=== PATIENT | female | born 1985 | race African-American/Black ===

== ENCOUNTER 2018-11-20 03:28 | Inpatient (IN) | payer MEDICAID ==
[~2018-11-20] VITALS: Ht 175.3 cm; Wt 114.9 kg
[2018-11-20 03:50] LABS: GLUCOSE,POINT OF CARE 74 MG/DL (70-110)
[2018-11-20] MEDS ORDERED: IOVERSOL 350 MG/ML 150 ML VIAL ONE (04:25)
[2018-11-20] MEDS ORDERED: SODIUM CHLORIDE 0.9% 100 ML ONE (04:25)
[2018-11-20] MEDS ORDERED: METOCLOPRAMIDE HCL 5 MG/ML 2 ML VIAL IVP ONE (05:30)
[2018-11-20] MEDS ORDERED: MORPHINE SULFATE 4 MG/ML SYRINGE IVP ONE (05:30)
[2018-11-20] MEDS ORDERED: ASPIRIN 325 MG TABLET PO ONE (07:00)
[2018-11-20] MEDS ORDERED: ONDANSETRON HCL 4 MG/2 ML VIAL IVP PRN (07:00)
[2018-11-20] MEDS ORDERED: 0.9% SODIUM CHLORIDE 10 ML SYRINGE IVP PRN (07:00)
[2018-11-20] MEDS ORDERED: ACETAMINOPHEN 325 MG TABLET PO PRN (07:00)
[2018-11-20] MEDS ORDERED: ONDANSETRON HCL 4 MG/2 ML VIAL IVP ONE (07:15)
[2018-11-20] MEDS ORDERED: KETOROLAC TROMETHAMINE 30 MG/ML VIAL IVP ONE (07:15)
[2018-11-20 07:24] LABS: GLUCOSE,POINT OF CARE 85 MG/DL (70-110)
[2018-11-20] MEDS ORDERED: LORazepam 2 MG/ML VIAL IVP PRN (08:15)
[2018-11-20] MEDS ORDERED: MAGNESIUM HYDROXIDE SUSPENSION 30 ML UDCUP PO PRN (08:15)
[2018-11-20] MEDS ORDERED: TraMADol HCL 50 MG TABLET PO PRN (09:30)
[2018-11-20 09:40] VITALS: BP 119/74
[2018-11-20] MEDS ORDERED: GADOBUTROL 1 MMOL/ML 10 ML VIAL IVP ONE (10:28)
[2018-11-20] MEDS: FAMOTIDINE 20 MG TABLET PO SCH (11:32)
[2018-11-20] MEDS: DOCUSATE SODIUM 100 MG CAPSULE PO SCH ×2 (11:32→22:35)
[2018-11-20 12:39] LABS: GLUCOMETER DEV NAME(LOC) 5S.1; GLUCOSE,POINT OF CARE 127 MG/DL (70-110)
[2018-11-20] MEDS: ACETAMINOPHEN 325 MG TABLET PO PRN (15:32)
[2018-11-20 15:48] VITALS: BP 121/71
[2018-11-20 17:10] LABS: GLUCOMETER DEV NAME(LOC) 5S.1; GLUCOSE,POINT OF CARE 70 MG/DL (70-110)
[2018-11-20] MEDS: KETOROLAC TROMETHAMINE 15 MG/ML VIAL IVP PRN (22:35)
[2018-11-20] MEDS: LIDOCAINE 5% TRANSDERMAL PATCH TD SCH (22:36)
[2018-11-21] VITALS (7 sets, daily range): BP systolic 105–145; BP diastolic 63–93
[2018-11-21] MEDS: KETOROLAC TROMETHAMINE 15 MG/ML VIAL IVP PRN ×2 (04:49→18:48)
[2018-11-21 06:19] LABS: GLUCOMETER DEV NAME(LOC) 5S.1; GLUCOSE,POINT OF CARE 97 MG/DL (70-110)
[2018-11-21] MEDS: DOCUSATE SODIUM 100 MG CAPSULE PO SCH ×2 (09:37→20:03)
[2018-11-21] MEDS: FAMOTIDINE 20 MG TABLET PO SCH (09:37)
[2018-11-21] MEDS: -LIDODERM PATCH NOTE- MISC SCH (10:30)
[2018-11-21] MEDS ORDERED: SUMAtriptan SUCCINATE 6 MG/0.5 ML VIAL SQ ONE (10:45)
[2018-11-21] MEDS ORDERED: LORazepam 2 MG/ML VIAL IVP ONE (10:45)
[2018-11-21] MEDS ORDERED: PredniSONE 20 MG TABLET PO SCH (10:45)
[2018-11-21] MEDS: ValACYclovir HCL 500 MG TABLET PO SCH ×2 (11:14→20:03)
[2018-11-21 12:39] LABS: GLUCOMETER DEV NAME(LOC) 5S.1; GLUCOSE,POINT OF CARE 77 MG/DL (70-110)
[2018-11-21] MEDS: LIDOCAINE 5% TRANSDERMAL PATCH TD SCH (20:04)
[2018-11-22] MEDS: KETOROLAC TROMETHAMINE 15 MG/ML VIAL IVP PRN ×4 (01:31→23:55)
[2018-11-22 03:49] LABS: GLUCOMETER DEV NAME(LOC) 5S.1; GLUCOSE,POINT OF CARE 120 MG/DL (70-110)
[2018-11-22 03:49] LABS: GLUCOMETER DEV NAME(LOC) 5S.1; GLUCOSE,POINT OF CARE 165 MG/DL (70-110)
[2018-11-22 03:49] LABS: GLUCOMETER DEV NAME(LOC) 5S.1; GLUCOSE,POINT OF CARE 237 MG/DL (70-110)
[2018-11-22 05:04] VITALS: BP 111/59
[2018-11-22 06:00] LABS: BASOPHILS % (AUTO) 0.4 % (0.0-2.0); EOSINOPHILS % (AUTO) 0.1 % (1.0-6.0); HEMATOCRIT 38.5 % (36-46); HEMOGLOBIN 12.9 g/dL (12.0-16.0); LYMPHOCYTES # (AUTO) 2.1 K/uL (1.0-4.8); LYMPHOCYTES % (AUTO) 19.9 % (22.0-44.0); MEAN CORPUSCULAR HEMOGLOBIN 25.8 pg (26.0-34.0); MEAN CORPUSCULAR HGB CONC 33.6 G/dL (31.0-37.0); MEAN CORPUSCULAR VOLUME 77 fL (80-100); MONOCYTES # (AUTO) 0.8 K/uL (0.1-1.0); MONOCYTES % (AUTO) 7.8 % (2.0-9.0); NEUTROPHILS # (AUTO) 7.7 K/uL (1.8-7.7); NEUTROPHILS % (AUTO) 71.8 % (40.0-70.0); PLATELET COUNT (AUTO) 285 K/uL (150-450); RED BLOOD CELL COUNT(AUTO) 5.01 MIL/uL (4.00-5.20); RED CELL DISTRIBUTION WIDTH 15.1 % (11.5-14.5)
[2018-11-22 06:14] LABS: ANION GAP 9 mmol/L (8-16); CARBON DIOXIDE 24 mmol/L (22-29); CHLORIDE 105 mmol/L (98-107); CREATININE 0.78 mg/dL (0.60-1.30); GLOMERULAR FILTR. RATE CALC > 60 mL/min (>60); GLUCOSE,RANDOM 99 mg/dL (70-110); POTASSIUM 4.1 mmol/L (3.5-5.1); SODIUM SERUM 138 mmol/L (136-145); UREA NITROGEN, BLOOD 14 mg/dL (7-18)
[2018-11-22 07:55] VITALS: BP 115/70
[2018-11-22] MEDS: FAMOTIDINE 20 MG TABLET PO SCH (08:12)
[2018-11-22] MEDS: DOCUSATE SODIUM 100 MG CAPSULE PO SCH ×2 (08:12→20:46)
[2018-11-22] MEDS: ValACYclovir HCL 500 MG TABLET PO SCH ×2 (08:12→20:45)
[2018-11-22] MEDS ORDERED: PredniSONE 20 MG TABLET PO SCH (09:00)
[2018-11-22] MEDS: -LIDODERM PATCH NOTE- MISC SCH (09:00)
[2018-11-22 11:30] VITALS: BP 121/64
[2018-11-22 16:17] VITALS: BP 150/85
[2018-11-22 20:45] VITALS: BP 141/82
[2018-11-22] MEDS: ACETAMINOPHEN 325 MG TABLET PO PRN (20:45)
[2018-11-22] MEDS: LIDOCAINE 5% TRANSDERMAL PATCH TD SCH (20:46)
[2018-11-22 23:59] VITALS: BP 149/80
[2018-11-23 00:09] LABS: GLUCOMETER DEV NAME(LOC) 5S.1; GLUCOSE,POINT OF CARE 168 MG/DL (70-110)
[2018-11-23 00:09] LABS: GLUCOMETER DEV NAME(LOC) 5S.1; GLUCOSE,POINT OF CARE 169 MG/DL (70-110)
[2018-11-23 04:29] VITALS: BP 142/87
[2018-11-23 06:04] LABS: ANION GAP 9 mmol/L (8-16); CARBON DIOXIDE 27 mmol/L (22-29); CHLORIDE 104 mmol/L (98-107); CREATININE 0.82 mg/dL (0.60-1.30); GLOMERULAR FILTR. RATE CALC > 60 mL/min (>60); GLUCOSE,RANDOM 87 mg/dL (70-110); POTASSIUM 3.9 mmol/L (3.5-5.1); SODIUM SERUM 140 mmol/L (136-145); UREA NITROGEN, BLOOD 16 mg/dL (7-18)
[2018-11-23 07:44] LABS: GLUCOMETER DEV NAME(LOC) 5S.1; GLUCOSE,POINT OF CARE 83 MG/DL (70-110)
[2018-11-23 08:20] VITALS: BP 142/67
[2018-11-23] MEDS ORDERED: PredniSONE 20 MG TABLET PO ONE (09:00)
[2018-11-23] MEDS: -LIDODERM PATCH NOTE- MISC SCH (09:00)
[2018-11-23] MEDS: FAMOTIDINE 20 MG TABLET PO SCH (10:34)
[2018-11-23] MEDS: LIDOCAINE 5% TRANSDERMAL PATCH TD SCH (10:34)
[2018-11-23] MEDS: ValACYclovir HCL 500 MG TABLET PO SCH (10:35)
[2018-11-23] MEDS: DOCUSATE SODIUM 100 MG CAPSULE PO SCH (10:35)
[2018-11-23] MEDS: KETOROLAC TROMETHAMINE 15 MG/ML VIAL IVP PRN (10:39)
[2018-11-23 11:19] VITALS: BP 151/88
[2018-11-23] MEDS ORDERED: TRAM50TA4 PO (11:34)
[2018-11-23 15:58] VITALS: BP 136/86
[2018-11-23 17:45] LABS: GLUCOMETER DEV NAME(LOC) 5S.3; GLUCOSE,POINT OF CARE 100 MG/DL (70-110)
[2018-11-24] MEDS ORDERED: PredniSONE 10 MG TABLET PO SCH (09:00)
[2018-11-25] MEDS ORDERED: PredniSONE 20 MG TABLET PO SCH (09:00)
[2018-11-26] MEDS ORDERED: PredniSONE 10 MG TABLET PO SCH (09:00)
== END 2018-11-23 17:15 | disposition home or self-care (01) | DRG 53 ==
LOC: EMS 03:34 → 5S 08:00
PROVIDERS: ADMIT Internal Medicine; ATTEND Internal Medicine
DX: G40.909 Epilepsy, unspecified, not intractable, without status epilepticus (principal); E66.01 Morbid (severe) obesity due to excess calories; L65.9 Nonscarring hair loss, unspecified; E16.2 Hypoglycemia, unspecified; Z83.3 Family history of diabetes mellitus; Z82.49 Family history of ischemic heart disease and other diseases of the circulatory system; Z68.37 Body mass index [BMI] 37.0-37.9, adult; I10 Essential (primary) hypertension
CPT/HCPCS: 70496; 70498; 70553; 71275; 83525; 84443; 84681; 86038; 95816; A9585; G0378; J1885; J2060; J2270; J2405; J2765; J3030; J7050